=== PATIENT | male | born 1985 | race Caucasian/White ===

== ENCOUNTER 2018-09-12 18:22 | Emergency (ER) | payer MEDICAID ==
[~2018-09-12] VITALS: Ht 172.7 cm; Wt 79.9 kg
[2018-09-12 18:26] VITALS: BP 132/79; PULSE 77; RESP 19; Ht 172.7 cm; Wt 79.9 kg
[2018-09-12] MEDS ORDERED: IBUP-1561 PO (19:26)
[2018-09-12] MEDS ORDERED: IBUPROFEN 200 MG TAB PO ONE (19:30)
--- NOTE | 2018-09-13 05:41 | ERD ---
ER Documentation Chief Complaint Chief Complaint SCALP RASH/BUMPS X3DAYS, PAINFUL HPI This is a 32-year-old mostly Afghan-speaking male presents to the ED complaining of a diffuse headache times 1 week. Patient states pain has been getting progressively worse since yesterday. Patient states headache is pounding and radiates towards his ears. Patient also reports subjective bruising and rash to his scalp which exacerbates his headache. Bruises are painful and intermittent. He denies any associated vision changes, nausea, vomiting, neck pain, neck stiffness. No recent travel or sick contacts. No recent trauma. Patient is worried that his headache is due to "low oxygen" in his brain. He has no focal neurological deficits is acting at baseline per family. ROS All systems reviewed and are negative except as per history of present illness. Medications Home Meds Active Scripts Ibuprofen* (Motrin*) 400 Mg Tab, 400 MG PO Q6H PRN for PAIN AND OR ELEVATED TEMP, #30 TAB Prov:GRACIE CHUNG PA-C 09/12/18 Allergies Allergies: Coded Allergies: No Known Allergy (Unverified , 09/12/18) PMhx/Soc Hx Cardiac Disorders: Yes (HTN) Hx Alcohol Use: No Hx Substance Use: No Hx Tobacco Use: No Smoking Status: Never smoker Physical Exam Vitals Vital Signs Date Temp Pulse Resp B/P (MAP) Pulse Ox O2 O2 Flow FiO2 Time Delivery Rate 09/12/18 97.7 77 19 132/79 96 18:26 (96) Physical Exam Const: No acute distress Head: Atraumatic. No visible rashes on his scalp. No palpable nodules or lumps. Eyes: Normal Conjunctiva ENT: Normal External Ears, Nose and Mouth. Neck: Full range of motion. No meningismus. Skin: No petechiae or rashes Back: No midline or flank tenderness Ext: No cyanosis, or edema Neuro: M/S: Alert and oriented Face: EOMI, face and pharynx with normal sensation and function Motor: Normal strength throughout Sensation: Normal sensation throughout Speech: Normal Cerebel: Normal coordination Normal gait Normal finger to nose Psych: Normal Mood and Affect Results 24 hrs Current Medications Medications Dose Sig/Analy Start Time Status Last (Trade) Ordered Route PRN Stop Time Admin Dose Reason Admin Ibuprofen 400 mg ONCE ONCE 09/12/18 DC 09/12/18 (Motrin) PO 19:30 09/12/18 19:31 19:31 Procedures/MDM ED COURSE: The patient was given ibuprofen The medication was well tolerated and the patient had market improvement in symptoms. The patient remained stable throughout ED course. MEDICAL DECISION MAKIN-year-old male presents with headache and subjective rash to his scalp. He has no focal neurological deficits on physical exam. I reassured patient that there are no rashes or nodules on his scalp. History and physical most consistent with primary headache. Vital signs are stable. No focal neurological deficits on physical exam. Clinical presentation not consistent with subarachnoid hemorrhage, epidural or subdural hematoma, IC mass, CVA, encephalitis or meningitis. Patient was discharge home with close follow up and mangement by PCP in 48 hours. Strict return precautions dicussed. PRESCRIPTIONS: Ibuprofen SPECIALIST FOLLOW UP RECOMMENDED: None Patient has been advised to follow up with primary care in 1-2 days. Blood Pressure Assessment: Patient's blood pressure was elevated (>120/80) but appears stable without evidence of hypertension emergency or urgency. The patient was counseled about the risks of hypertension and urged to pursue outpatient monitoring and therapy within a week with their primary care physician. Departure Diagnosis: Primary Impression: Headache Headache type: tension-type Headache chronicity pattern: acute headache Intractability: not intractable Qualified Codes: G44.209 - Tension-type headache, unspecified, not intractable Condition: Stable Patient Instructions: Self-Care for Headaches Referrals: [facility] YOU HAVE RECEIVED A MEDICAL SCREENING EXAM AND THE RESULTS INDICATE THAT YOU DO NOT HAVE A CONDITION THAT REQUIRES URGENT TREATMENT IN THE EMERGENCY DEPARTMENT. FURTHER EVALUATION AND TREATMENT OF YOUR CONDITION CAN WAIT UNTIL YOU ARE SEEN IN YOUR DOCTORS OFFICE WITHIN THE NEXT 1-2 DAYS. IT IS YOUR RESPONSIBILITY TO MAKE AN APPOINTMENT FOR FOL- CARE. IF YOU HAVE A PRIMARY DOCTOR --you should call your primary doctor and schedule an appointment IF YOU DO NOT HAVE A PRIMARY DOCTOR YOU CAN CALL OUR PHYSICIAN REFERRAL HOTLINE AT IF YOU CAN NOT AFFORD TO SEE A PHYSICIAN YOU CAN CHOSE FROM THE FOLLOWING [facility] [address] [facility] [address] [facility] [facility] [address] [facility] [address] [facility] [address] [facility]. [facility]. [address] [facility]. [facility] YOU HAVE RECEIVED A MEDICAL SCREENING EXAM AND THE RESULTS INDICATE THAT YOU DO NOT HAVE A CONDITION THAT REQUIRES URGENT TREATMENT IN THE EMERGENCY DEPARTMENT. FURTHER EVALUATION AND TREATMENT OF YOUR CONDITION CAN WAIT UNTIL YOU ARE SEEN IN YOUR DOCTORS OFFICE WITHIN THE NEXT 1-2 DAYS. IT IS YOUR RESPONSIBILITY TO MAKE AN APPOINTMENT FOR FOLOW-UP CARE. IF YOU HAVE A PRIMARY DOCTOR --you should call your primary doctor and schedule and appointment IF YOU DO NOT HAVE A PRIMARY DOCTOR YOU CAN CALL OUR PHYSICIAN REFERRAL HOTLINE AT . IF YOU CAN NOT AFFORD TO SEE A PHYSICIAN YOU CAN CHOSE FROM THE FOLLOWING [facility] INSTITUTIONS: [address] [place] [address] Additional Instructions: Paciente aconseja volver a Departamento de urgencias inmediatamente para sntomas nuevos o que empeoran . Paciente aconseja posteriores con el PCP en 1-2 wood. Si el paciente no tiene ninguna de atencin primaria pueden seguir con [address] [address] o [place] [id number] GRACIE CHUNG PA-C Sep 13, 2018 05:41
== END 2018-09-12 19:33 | disposition home or self-care (01) ==
LOC: FTE 18:22
DX: G44.209 Tension-type headache, unspecified, not intractable (principal); I10 Essential (primary) hypertension
CPT/HCPCS: Z7502; Z7610; 99282